=== PATIENT | male | born 1940 | race Caucasian/White ===

== ENCOUNTER → 2017-09-16 | Outpatient (REF) | payer MEDICARE ==
[2017-09-16 19:03] LABS: FREE T4 0.98 NG/DL (0.76-1.46)
== END ==
LOC: M LABDRAWC 16:47
DX: E03.9 Hypothyroidism, unspecified (principal)
CPT/HCPCS: 84443

== ENCOUNTER → 2018-09-29 | Outpatient (REF) | payer MEDICARE ==
[2018-09-29 17:40] LABS: CALCIUM LEVEL 9.2 MG/DL (8.8-10.2); CREATININE FOR GFR 1.88 MG/DL (0.70-1.30); FREE T4 1.25 NG/DL (0.76-1.46); GLOMERULAR FILTRATION RATE 37.1 (>42); POTASSIUM SERUM 4.7 MEQ/L (3.5-5.1); THYROID STIMULATING HORMONE 2.93 uIU/ML (0.358-3.740)
== END ==
LOC: M LABDRAWC 16:30
PROVIDERS: ATTEND Student in an Organized Health Care Education/Training Program
DX: N18.3 Chronic kidney disease, stage 3 (moderate) (principal); Z79.899 Other long term (current) drug therapy

== ENCOUNTER → 2019-09-27 | Outpatient (REF) | payer MEDICARE ==
[2019-09-27 17:05] LABS: CALCIUM LEVEL 8.9 MG/DL (8.8-10.2); CREATININE FOR GFR 2.2 MG/DL (0.70-1.30); GLOMERULAR FILTRATION RATE 30.9 (>42); POTASSIUM SERUM 4.8 MEQ/L (3.5-5.1); PROSTATIC SPECIFIC AG MONITOR 0.24 NG/ML (< 4.00)
== END ==
LOC: M LABDRAWC 16:04
PROVIDERS: ATTEND Urology
DX: C61 Malignant neoplasm of prostate (principal); R39.14 Feeling of incomplete bladder emptying; R35.1 Nocturia

== ENCOUNTER → 2019-11-08 | Outpatient (REF) | payer MEDICARE | LOC: M LABDRAWC 15:53 | PROVIDERS: ATTEND Urology | DX: C61 Malignant neoplasm of prostate (principal) ==

== ENCOUNTER → 2019-11-18 | Outpatient (CLI) | payer MEDICARE ==
--- NOTE | 2019-11-18 14:33 | REPVR ---
PROCEDURE INFORMATION: Exam: US Duplex Lower Extremity Veins, Bilateral Exam date and time: 11/18/2019 2:06 PM Age: 79 years old Clinical indication: Swelling (edema) of limb; Lower extremity, bilateral; Additional info: R/O dvt, micheal leg edema/swelling TECHNIQUE: Imaging protocol: Real-time duplex ultrasound of the extremities with 2-D delvalle scale, color Doppler flow and spectral waveform analysis with image documentation. Complete exam focused on the bilateral lower extremity veins. COMPARISON: No relevant prior studies available. FINDINGS: Right deep veins: Unremarkable. The common femoral, femoral, proximal profunda femoral and popliteal veins are patent without thrombus. Normal Doppler waveforms. Normal compressibility and/or augmentation response. Right superficial veins: Saphenofemoral junction is patent without thrombus. Left deep veins: Unremarkable. The common femoral, femoral, proximal profunda femoral and popliteal veins are patent without thrombus. Normal Doppler waveforms. Normal compressibility and/or augmentation response. Left superficial veins: Saphenofemoral junction is patent without thrombus. Soft tissues: 4.7 x 0.9 x 2.2 cm cyst in the right popliteal fossa. No internal vascularity. 4.1 x 1.3 x 2.4 cm cyst in the left popliteal fossa. No internal vascularity. IMPRESSION: 1. No evidence of lower extremity DVT. 2. Bilateral popliteal cysts. Electronically signed by: Mary Carrasco On 11/18/2019 14:33:43 PM
== END ==
LOC: M RAD 13:41
PROVIDERS: ATTEND Urology
DX: R60.0 Localized edema (principal)

== ENCOUNTER → 2021-08-27 | Outpatient (REF) | payer MEDICARE ==
[2021-08-27 16:37] LABS: ALBUMIN 3.6 GM/DL (3.2-5.2); CALCIUM LEVEL 8.3 MG/DL (8.8-10.2); CREATININE FOR GFR 2.36 MG/DL (0.70-1.30); GLOMERULAR FILTRATION RATE 28.3 (>35); PHOSPHORUS LEVEL 3.2 MG/DL (2.5-4.9); POTASSIUM SERUM 5.5 MEQ/L (3.5-5.1)
== END ==
LOC: M LABDRAWC 15:31
DX: N18.32 Chronic kidney disease, stage 3b (principal)

== ENCOUNTER → 2021-11-08 | Outpatient (REF) | payer MEDICARE ==
[2021-11-08 18:26] LABS: HEMATOCRIT 35.9 % (42.0-52.0); HEMOGLOBIN 11.4 g/dl (13.5-17.5)
[2021-11-08 19:08] LABS: ALBUMIN 3.6 GM/DL (3.2-5.2); CALCIUM LEVEL 8.7 MG/DL (8.8-10.2); CREATININE FOR GFR 2.61 MG/DL (0.70-1.30); GLOMERULAR FILTRATION RATE 25.2 (>35); PHOSPHORUS LEVEL 3.2 MG/DL (2.5-4.9)
[2021-11-08 19:42] LABS: PTH INTACT 69.9 PG/ML (18.5-88.0)
== END ==
LOC: M LABDRAWC 16:35
PROVIDERS: ATTEND Internal Medicine Nephrology
DX: E87.5 Hyperkalemia (principal); Z79.899 Other long term (current) drug therapy

== ENCOUNTER → 2021-11-12 | Outpatient (REF) | payer MEDICARE ==
[2021-11-12 18:29] LABS: CREATININE,RANDOM URINE 45.5 MG/DL; TOTAL PROTEIN,RANDOM URINE 86.6 MG/DL (0.0-12.0)
== END ==
LOC: M LABDRAWC 17:03
PROVIDERS: ATTEND Internal Medicine Nephrology
DX: E87.5 Hyperkalemia (principal)

== ENCOUNTER → 2021-12-17 | Outpatient (REF) | payer MEDICARE ==
[2021-12-17 18:41] LABS: CALCIUM LEVEL 8.7 MG/DL (8.8-10.2); CREATININE FOR GFR 2.43 MG/DL (0.70-1.30); GLOMERULAR FILTRATION RATE 27.4 (>35); POTASSIUM SERUM 4.8 MEQ/L (3.5-5.1)
== END ==
LOC: M LABDRAWC 17:03
PROVIDERS: ATTEND Internal Medicine Nephrology
DX: E87.5 Hyperkalemia (principal)

== ENCOUNTER → 2022-09-10 | Outpatient (REF) | payer MEDICARE ==
[2022-09-10 17:37] LABS: HEMATOCRIT 30.1 % (42.0-52.0); HEMOGLOBIN 10.4 g/dl (13.5-17.5)
[2022-09-10 17:57] LABS: ALBUMIN 3.4 G/DL (3.2-5.2); CALCIUM LEVEL 8.3 MG/DL (8.3-10.6); CREATININE FOR GFR 2.85 MG/DL (0.70-1.30); GLOMERULAR FILTRATION RATE 22.7 (>35); PHOSPHORUS LEVEL 2.9 MG/DL (2.4-5.1); POTASSIUM SERUM 4.1 MMOL/L (3.5-5.1)
[2022-09-10 17:58] LABS: PTH INTACT 117.7 PG/ML (18.5-88.0)
[2022-09-10 18:00] LABS: TOTAL 25(OH) VITAMIN D 27.4 NG/ML (20.0-100.0)
== END ==
LOC: M LABDRAWC 16:46
PROVIDERS: ATTEND Internal Medicine Nephrology
DX: E87.5 Hyperkalemia (principal)

== ENCOUNTER → 2022-10-14 | Outpatient (REF) | payer MEDICARE ==
[2022-10-14 17:57] LABS: HEMOGLOBIN A1c 5.3 % (4.0-6.0)
== END ==
LOC: M LABDRAWC 17:10
PROVIDERS: ATTEND Nurse Practitioner Adult Health
DX: E11.9 Type 2 diabetes mellitus without complications (principal)

== ENCOUNTER → 2022-11-12 | Outpatient (REF) | payer MEDICARE ==
[2022-11-12 18:56] LABS: FREE T4 1.36 NG/DL (0.89-1.76); THYROID STIMULATING HORMONE 1.938 uIU/ML (0.55-4.78)
== END ==
LOC: M LABDRAWC 17:43
PROVIDERS: ATTEND Nurse Practitioner Adult Health
DX: E03.9 Hypothyroidism, unspecified (principal)

== ENCOUNTER → 2023-07-22 | Outpatient (REF) | payer MEDICARE ==
[2023-07-22 18:18] LABS: HEMOGLOBIN A1c 5.5 % (4.0-6.0)
[2023-07-22 18:29] LABS: CREATININE, URINE 48.1 MG/DL
[2023-07-22 18:32] LABS: ALBUMIN 3.5 G/DL (3.2-5.2); BILIRUBIN,TOTAL 0.3 MG/DL (0.3-1.2); CALCIUM LEVEL 8.5 MG/DL (8.3-10.6); CHOLESTEROL RISK RATIO 3.49 (<5); CREATININE FOR GFR 3.4 MG/DL (0.70-1.30); GLOMERULAR FILTRATION RATE 18.5 (>35); HDL CHOLESTEROL 35.8 MG/DL (>40); LDL CHOLESTEROL 64.4 MG/DL (<100); NON-HDL-C 89.2 MG/DL; THYROID STIMULATING HORMONE 4.215 uIU/ML (0.55-4.78); TOTAL PROTEIN 6.1 G/DL (5.7-8.2)
== END ==
LOC: M LABDRAWC 16:45
PROVIDERS: ATTEND Nurse Practitioner Family
DX: E78.2 Mixed hyperlipidemia (principal); E11.9 Type 2 diabetes mellitus without complications; E03.9 Hypothyroidism, unspecified

== ENCOUNTER → 2023-09-21 | Outpatient (REF) | payer MEDICARE ==
[2023-09-21 18:00] LABS: ALBUMIN 3.5 G/DL (3.2-5.2); BILIRUBIN,TOTAL 0.2 MG/DL (0.3-1.2); CALCIUM LEVEL 8.8 MG/DL (8.3-10.6); CHOLESTEROL RISK RATIO 3.31 (<5); CREATININE FOR GFR 3.67 MG/DL (0.70-1.30); GLOMERULAR FILTRATION RATE 16.9 (>35); HDL CHOLESTEROL 30.5 MG/DL (>40); LDL CHOLESTEROL 46.3 MG/DL (<100); NON-HDL-C 70.5 MG/DL; TOTAL PROTEIN 6.1 G/DL (5.7-8.2)
[2023-09-21 18:07] LABS: THYROID STIMULATING HORMONE 1.654 uIU/ML (0.55-4.78)
[2023-09-21 18:09] LABS: CREATININE, URINE 66.3 MG/DL
[2023-09-21 18:17] LABS: HEMOGLOBIN A1c 5.3 % (4.0-6.0)
[2023-09-21 18:30] LABS: MAU/CREAT RATIO 927.6 MCG/MG (0.0-30.0)
== END ==
LOC: M LABDRAWC 17:10
PROVIDERS: ATTEND Nurse Practitioner Family
DX: E11.9 Type 2 diabetes mellitus without complications (principal); E78.2 Mixed hyperlipidemia; E03.9 Hypothyroidism, unspecified

== ENCOUNTER → 2023-10-22 | Outpatient (REF) | payer MEDICARE ==
[2023-10-27 12:31] LABS: HEMOGLOBIN A1c 5.2 % (4.0-6.0)
[2023-10-27 12:32] LABS: CREATININE FOR GFR 3.1 MG/DL (0.70-1.30); GLOMERULAR FILTRATION RATE 20.6 (>35)
[2023-10-27 12:33] LABS: BILIRUBIN,TOTAL 0.3 MG/DL (0.3-1.2); CALCIUM LEVEL 8.5 MG/DL (8.3-10.6); CARBON DIOXIDE LEVEL 21.6 MMOL/L (20-31); POTASSIUM SERUM 4.5 MMOL/L (3.5-5.1)
[2023-10-27 12:34] LABS: ALBUMIN 3.5 G/DL (3.2-5.2); CHOLESTEROL RISK RATIO 3.48 (<5); HDL CHOLESTEROL 32.4 MG/DL (>40); NON-HDL-C 80.6 MG/DL; THYROID STIMULATING HORMONE 2.467 uIU/ML (0.55-4.78); TOTAL PROTEIN 6.3 G/DL (5.7-8.2)
[2023-10-27 12:57] LABS: CREATININE, URINE 98.19 MG/DL
== END ==
LOC: M LABDRAWC 09:47
PROVIDERS: ATTEND Nurse Practitioner Family
DX: E11.9 Type 2 diabetes mellitus without complications (principal); E78.2 Mixed hyperlipidemia; E03.9 Hypothyroidism, unspecified

== ENCOUNTER → 2023-11-24 | Outpatient (REF) | payer MEDICARE ==
[2023-11-24 19:37] LABS: HEMOGLOBIN A1c 5.3 % (4.0-6.0)
[2023-11-24 19:41] LABS: CREATININE, URINE 46.3 MG/DL
[2023-11-24 19:42] LABS: ALBUMIN 3.7 G/DL (3.2-5.2); BILIRUBIN,TOTAL 0.2 MG/DL (0.3-1.2); CALCIUM LEVEL 9.4 MG/DL (8.3-10.6); CHOLESTEROL RISK RATIO 3.32 (<5); CREATININE FOR GFR 3.87 MG/DL (0.70-1.30); GLOMERULAR FILTRATION RATE 15.9 (>35); HDL CHOLESTEROL 37.3 MG/DL (>40); LDL CHOLESTEROL 73.3 MG/DL (<100); NON-HDL-C 86.7 MG/DL; THYROID STIMULATING HORMONE 2.609 uIU/ML (0.55-4.78); TOTAL PROTEIN 6.6 G/DL (5.7-8.2)
[2023-11-24 19:56] LABS: MAU/CREAT RATIO 1069.1 MCG/MG (0.0-30.0)
[2023-11-26 08:13] LABS: LDL DIRECT 70 mg/dL (<100)
== END ==
LOC: M LABDRAWC 17:28
PROVIDERS: ATTEND Nurse Practitioner Family
DX: E78.2 Mixed hyperlipidemia (principal); E11.9 Type 2 diabetes mellitus without complications; E03.9 Hypothyroidism, unspecified

== ENCOUNTER → 2023-12-08 | Outpatient (REF) | payer MEDICARE ==
[2023-12-08 17:11] LABS: HEMOGLOBIN A1c 5.3 % (4.0-6.0)
[2023-12-08 17:31] LABS: CREATININE, URINE 82.3 MG/DL
[2023-12-08 17:35] LABS: ALBUMIN 3.6 G/DL (3.2-5.2); BILIRUBIN,TOTAL 0.2 MG/DL (0.3-1.2); CALCIUM LEVEL 8.5 MG/DL (8.3-10.6); CHOLESTEROL RISK RATIO 3.27 (<5); CREATININE FOR GFR 3.71 MG/DL (0.70-1.30); GLOMERULAR FILTRATION RATE 16.7 (>35); HDL CHOLESTEROL 33.3 MG/DL (>40); LDL CHOLESTEROL 40.5 MG/DL (<100); NON-HDL-C 75.7 MG/DL; POTASSIUM SERUM 4.7 MMOL/L (3.5-5.1); THYROID STIMULATING HORMONE 1.576 uIU/ML (0.55-4.78); TOTAL PROTEIN 6.4 G/DL (5.7-8.2)
[2023-12-08 17:42] LABS: MAU/CREAT RATIO 900.3 MCG/MG (0.0-30.0)
[2023-12-10 06:53] LABS: LDL DIRECT 56 mg/dL (<100)
== END ==
LOC: M LABDRAWC 16:31
PROVIDERS: ATTEND Nurse Practitioner Family
DX: E11.9 Type 2 diabetes mellitus without complications (principal); E78.2 Mixed hyperlipidemia; E03.9 Hypothyroidism, unspecified

== ENCOUNTER → 2024-09-23 | Outpatient (REF) | payer MEDICARE ==
[2024-09-23 17:50] LABS: CALCIUM LEVEL 8.4 MG/DL (8.3-10.6); CARBON DIOXIDE LEVEL 19.0 MMOL/L (20-31); CHLORIDE LEVEL 109.0 MMOL/L (98-107); CREATININE FOR GFR 5.84 MG/DL (0.70-1.30); GLOMERULAR FILTRATION RATE 8.9 (>35); POTASSIUM SERUM 5.1 MMOL/L (3.5-5.1); SODIUM LEVEL 141.0 MMOL/L (136-145)
== END ==
LOC: M LABDRAWC 17:21
PROVIDERS: ATTEND Internal Medicine Nephrology
DX: N18.4 Chronic kidney disease, stage 4 (severe) (principal)

== ENCOUNTER → 2024-10-06 | Outpatient (REF) | payer MEDICARE ==
[2024-10-06 18:33] LABS: CALCIUM LEVEL 7.7 MG/DL (8.3-10.6); CARBON DIOXIDE LEVEL 18.0 MMOL/L (20-31); CHLORIDE LEVEL 110.0 MMOL/L (98-107); CREATININE FOR GFR 5.74 MG/DL (0.70-1.30); GLOMERULAR FILTRATION RATE 9.1 (>35); POTASSIUM SERUM 5.2 MMOL/L (3.5-5.1); SODIUM LEVEL 142.0 MMOL/L (136-145)
== END ==
LOC: M LABDRAWC 17:38
PROVIDERS: ATTEND Internal Medicine Nephrology
DX: N18.4 Chronic kidney disease, stage 4 (severe) (principal)

== ENCOUNTER 2024-10-31 14:35 | Inpatient (IN) | payer MEDICARE ==
[~2024-10-31] VITALS: Ht 172.7 cm; Wt 67.9 kg
[2024-10-31] MEDS ORDERED: AMLO1TAB25 PO (15:14)
[2024-10-31] MEDS ORDERED: ASPI81CH33 PO (15:14)
[2024-10-31] MEDS ORDERED: FERR325T19 PO (15:14)
[2024-10-31] MEDS ORDERED: TORS10TA3 PO (15:14)
[2024-10-31] MEDS ORDERED: LISI40TA10 PO (15:14)
[2024-10-31] MEDS ORDERED: PHEN15TA12 PO (15:14)
[2024-10-31] MEDS ORDERED: LEVO88TA3 PO (15:14)
[2024-10-31] MEDS ORDERED: ATOR1TAB21 PO (15:14)
[2024-10-31] MEDS ORDERED: NARD15TA PO (15:15)
[2024-10-31 15:23] LABS: BASO # 0.1 10^3/uL (0.0-0.2); BASO % 1.3 % (0.0-1.0); EOS # 0.3 10^3/uL (0.0-0.5); EOS % 5.6 % (0.0-3.0); LYMPH # 0.9 10^3/uL (1.5-5.0); LYMPH % 17.1 % (24.0-44.0); MONO # 0.5 10^3/uL (0.0-0.8); MONO % 8.7 % (2.0-8.0); NEUTROPHILS # 3.6 10^3/uL (1.5-8.5); NEUTROPHILS % 67.1 % (36.0-66.0); PLATELET COUNT, AUTOMATED 166 10^3/uL (150-450)
[2024-10-31 16:03] LABS: ALT/SGPT 22.0 U/L (7.0-40); AST/SGOT 24.0 U/L (<34); CALCIUM LEVEL 9.1 MG/DL (8.3-10.6); CARBON DIOXIDE LEVEL 18.0 MMOL/L (20-31); CHLORIDE LEVEL 111.0 MMOL/L (98-107); CREATININE FOR GFR 6.21 MG/DL (0.70-1.30); GLOMERULAR FILTRATION RATE 8.3 (>35); POTASSIUM SERUM 5.3 MMOL/L (3.5-5.1); SODIUM LEVEL 141.0 MMOL/L (136-145)
[2024-10-31 16:39] LABS: VENOUS BASE EXCESS -9.7 (-2.0-2.0); VENOUS HCO3 14.9 MMOL/L (23.0-27.0); VENOUS O2 SATURATION 97.9 % (60.0-80.0); VENOUS PARTIAL PRESSURE CO2 28.1 mmHg (38.0-50.0); VENOUS PARTIAL PRESSURE O2 111.2 mmHg (30.0-50.0); VENOUS PH 7.343 UNITS (7.330-7.430); VENOUS STANDARD HCO3 16.5 MMOL/L; VENOUS TOTAL CO2 15.8 MMOL/L (24.0-28.0)
[2024-10-31 17:19] LABS: ALT/SGPT 21.0 U/L (7.0-40); AST/SGOT 25.0 U/L (<34); CALCIUM LEVEL 9.0 MG/DL (8.3-10.6); CARBON DIOXIDE LEVEL 16.0 MMOL/L (20-31); CHLORIDE LEVEL 113.0 MMOL/L (98-107); CREATININE FOR GFR 6.18 MG/DL (0.70-1.30); GLOMERULAR FILTRATION RATE 8.3 (>35); POTASSIUM SERUM 5.4 MMOL/L (3.5-5.1); SODIUM LEVEL 143.0 MMOL/L (136-145)
[2024-10-31] MEDS ORDERED: SODI650T PO (18:02)
[2024-10-31] MEDS ORDERED: ISOS1TAB35 PO (18:02)
[2024-10-31] MEDS: FUROSEMIDE 100 MG/10 ML VIAL IV ONE ×2 (18:03→20:02)
[2024-10-31] MEDS ORDERED: VITADRO5 PO (18:03)
[2024-10-31] MEDS ORDERED: HOME MED LIST COMPLETE! XX SCH (18:05)
[2024-10-31 18:28] LABS: IRON (FE) 49.0 UG/DL (65-175); PERCENT SATURATION 20.0 % (19.7-50.0)
[2024-10-31 18:31] LABS: VITAMIN B12 LEVEL 621.0 PG/ML (211-911)
[2024-10-31] MEDS: SODIUM BICARBONATE 325 MG TAB PO SCH (20:39)
[2024-10-31] MEDS: ATORVASTATIN 20 MG TAB PO SCH (20:40)
[2024-10-31] MEDS: amLODIPine 10 MG TAB PO SCH (20:40)
[2024-10-31 22:43] VITALS: BP 187/72; TEMP 97.5; O2SAT 95
[2024-10-31 22:58] VITALS: BP 172/72; TEMP 97.4; O2SAT 95
[2024-10-31 23:43] VITALS: BP 176/73; TEMP 97.4; O2SAT 95
[2024-11-01] VITALS (15 sets, daily range): BP systolic 127–169; BP diastolic 61–77; TEMP 96.7–97.9; O2SAT 94–99
[2024-11-01 03:03] LABS: BASO # 0.1 10^3/uL (0.0-0.2); BASO % 1.2 % (0.0-1.0); EOS # 0.4 10^3/uL (0.0-0.5); EOS % 5.5 % (0.0-3.0); LYMPH # 0.9 10^3/uL (1.5-5.0); LYMPH % 14.3 % (24.0-44.0); MONO # 0.6 10^3/uL (0.0-0.8); MONO % 8.7 % (2.0-8.0); NEUTROPHILS # 4.6 10^3/uL (1.5-8.5); NEUTROPHILS % 70.0 % (36.0-66.0); PLATELET COUNT, AUTOMATED 145 10^3/uL (150-450)
[2024-11-01 03:29] LABS: CALCIUM LEVEL 8.9 MG/DL (8.3-10.6); CARBON DIOXIDE LEVEL 18.0 MMOL/L (20-31); CHLORIDE LEVEL 112.0 MMOL/L (98-107); CREATININE FOR GFR 6.42 MG/DL (0.70-1.30); GLOMERULAR FILTRATION RATE 8.0 (>35); POTASSIUM SERUM 5.7 MMOL/L (3.5-5.1); SODIUM LEVEL 144.0 MMOL/L (136-145)
[2024-11-01] MEDS: LEVOTHYROXINE 88 MCG TABLET (0.088 MG) PO SCH (05:52)
[2024-11-01 05:53] LABS: BASO # 0.1 10^3/uL (0.0-0.2); BASO % 1.4 % (0.0-1.0); EOS # 0.4 10^3/uL (0.0-0.5); EOS % 6.7 % (0.0-3.0); LYMPH # 0.9 10^3/uL (1.5-5.0); LYMPH % 13.6 % (24.0-44.0); MONO # 0.6 10^3/uL (0.0-0.8); MONO % 8.7 % (2.0-8.0); NEUTROPHILS # 4.5 10^3/uL (1.5-8.5); NEUTROPHILS % 69.3 % (36.0-66.0); PLATELET COUNT, AUTOMATED 141 10^3/uL (150-450)
[2024-11-01 06:21] LABS: CALCIUM LEVEL 8.7 MG/DL (8.3-10.6); CARBON DIOXIDE LEVEL 17.0 MMOL/L (20-31); CHLORIDE LEVEL 112.0 MMOL/L (98-107); CREATININE FOR GFR 6.38 MG/DL (0.70-1.30); GLOMERULAR FILTRATION RATE 8.0 (>35); POTASSIUM SERUM 5.2 MMOL/L (3.5-5.1); SODIUM LEVEL 143.0 MMOL/L (136-145)
[2024-11-01] MEDS: ASPIRIN 81 MG CHEWABLE TABLET PO SCH (08:00)
[2024-11-01] MEDS: FUROSEMIDE injection 100 MG, VIAL 2 BAG 13MM ADAPTER 1 EACH in NS 100 ML IV SCH (08:00)
[2024-11-01] MEDS: ISOSORBIDE MONONITRATE 30 MG XR TAB PO SCH (08:01)
[2024-11-01] MEDS: SODIUM BICARBONATE 325 MG TAB PO SCH (08:01)
[2024-11-01] MEDS: FERROUS SULFATE 325 MG TAB PO SCH (12:12)
[2024-11-02] VITALS (7 sets, daily range): BP systolic 140–168; BP diastolic 68–74; TEMP 97–98.5; O2SAT 94–96
[2024-11-02 06:01] LABS: BASO # 0.1 10^3/uL (0.0-0.2); BASO % 1.4 % (0.0-1.0); EOS # 0.5 10^3/uL (0.0-0.5); EOS % 7.7 % (0.0-3.0); LYMPH # 0.8 10^3/uL (1.5-5.0); LYMPH % 12.4 % (24.0-44.0); MONO # 0.6 10^3/uL (0.0-0.8); MONO % 9.1 % (2.0-8.0); NEUTROPHILS # 4.5 10^3/uL (1.5-8.5); NEUTROPHILS % 69.1 % (36.0-66.0); PLATELET COUNT, AUTOMATED 143 10^3/uL (150-450)
[2024-11-02 06:18] LABS: CALCIUM LEVEL 8.7 MG/DL (8.3-10.6); CARBON DIOXIDE LEVEL 17.0 MMOL/L (20-31); CHLORIDE LEVEL 111.0 MMOL/L (98-107); CREATININE FOR GFR 6.47 MG/DL (0.70-1.30); GLOMERULAR FILTRATION RATE 7.9 (>35); POTASSIUM SERUM 5.0 MMOL/L (3.5-5.1); SODIUM LEVEL 143.0 MMOL/L (136-145)
[2024-11-02] MEDS: SODIUM BICARBONATE 325 MG TAB PO SCH (09:39)
[2024-11-02] MEDS: PHENELZINE 15 MG PO SCH (20:27)
[2024-11-03] MEDS ORDERED: FUROSEMIDE 100 MG/10 ML VIAL As Ordered ONE (02:46)
[2024-11-03] MEDS ORDERED: [UNRECOGNIZED DRUG - OTHER] XX ONE (02:47)
[2024-11-03 03:58] VITALS: BP 150/67; TEMP 98.5; O2SAT 94
[2024-11-03 05:50] LABS: BASO # 0.1 10^3/uL (0.0-0.2); BASO % 1.1 % (0.0-1.0); EOS # 0.6 10^3/uL (0.0-0.5); EOS % 8.6 % (0.0-3.0); LYMPH # 0.9 10^3/uL (1.5-5.0); LYMPH % 14.3 % (24.0-44.0); MONO # 0.7 10^3/uL (0.0-0.8); MONO % 10.9 % (2.0-8.0); NEUTROPHILS # 4.2 10^3/uL (1.5-8.5); NEUTROPHILS % 64.8 % (36.0-66.0); PLATELET COUNT, AUTOMATED 142 10^3/uL (150-450)
[2024-11-03 06:11] LABS: CALCIUM LEVEL 8.0 MG/DL (8.3-10.6); CARBON DIOXIDE LEVEL 19.0 MMOL/L (20-31); CHLORIDE LEVEL 109.0 MMOL/L (98-107); CREATININE FOR GFR 6.65 MG/DL (0.70-1.30); GLOMERULAR FILTRATION RATE 7.6 (>35); POTASSIUM SERUM 4.7 MMOL/L (3.5-5.1); SODIUM LEVEL 142.0 MMOL/L (136-145)
[2024-11-03 07:53] VITALS: BP 136/65; TEMP 97.6; O2SAT 96
[2024-11-03 08:54] VITALS: BP 136/65
[2024-11-03] MEDS: BUMETANIDE 1 MG TAB PO SCH (08:54)
[2024-11-03 11:58] VITALS: BP 134/63; TEMP 97.3; O2SAT 97
[2024-11-03] MEDS ORDERED: BUME1TAB3 PO (15:38)
[2024-11-03] MEDS ORDERED: SODI650T PO (15:38)
== END 2024-11-03 17:21 | disposition home or self-care (01) | DRG 291 ==
LOC: M ED 14:35 → M ED INP 17:38 → M PCU 21:10
PROVIDERS: ADMIT General Practice; ATTEND General Practice
PROC: 30233N1 Transfusion of Nonautologous Red Blood Cells into Peripheral Vein, Percutaneous Approach (ICD-10-PCS; principal; 2024-10-31)
DX: I13.2 Hypertensive heart and chronic kidney disease with heart failure and with stage 5 chronic kidney disease, or end stage renal disease (principal); I50.33 Acute on chronic diastolic (congestive) heart failure; N17.9 Acute kidney failure, unspecified; E87.20 Acidosis, unspecified; E44.0 Moderate protein-calorie malnutrition; N18.5 Chronic kidney disease, stage 5; E87.5 Hyperkalemia; D63.1 Anemia in chronic kidney disease; I16.0 Hypertensive urgency; E03.9 Hypothyroidism, unspecified; I25.10 Atherosclerotic heart disease of native coronary artery without angina pectoris; E55.9 Vitamin D deficiency, unspecified; F31.9 Bipolar disorder, unspecified; Z95.1 Presence of aortocoronary bypass graft; Z87.891 Personal history of nicotine dependence; Z79.899 Other long term (current) drug therapy; Z79.82 Long term (current) use of aspirin; Z88.5 Allergy status to narcotic agent

== ENCOUNTER → 2024-11-22 | Outpatient (REF) | payer MEDICARE ==
[~2024-11-22] MED LIST: AMLO1TAB25 PO; ASPI81CH33 PO; ATOR1TAB21 PO; BUME1TAB3 PO; FERR325T19 PO; ISOS1TAB35 PO; LEVO88TA3 PO; LISI40TA10 PO; NARD15TA PO; PHEN15TA12 PO; SODI650T PO; TORS10TA3 PO; VITADRO5 PO
[2024-11-22 19:33] LABS: CALCIUM LEVEL 8.0 MG/DL (8.3-10.6); CARBON DIOXIDE LEVEL 15.0 MMOL/L (20-31); CHLORIDE LEVEL 107.0 MMOL/L (98-107); CREATININE FOR GFR 6.7 MG/DL (0.70-1.30); GLOMERULAR FILTRATION RATE 7.6 (>35); POTASSIUM SERUM 5.0 MMOL/L (3.5-5.1); SODIUM LEVEL 138.0 MMOL/L (136-145)
== END ==
LOC: M LABDRAWC 17:42
PROVIDERS: ATTEND Internal Medicine Nephrology
DX: N18.4 Chronic kidney disease, stage 4 (severe) (principal)

== ENCOUNTER → 2024-11-30 | Outpatient (REF) | payer MEDICARE ==
[2024-11-30 13:34] LABS: CALCIUM LEVEL 7.4 MG/DL (8.3-10.6); CARBON DIOXIDE LEVEL 16.0 MMOL/L (20-31); CHLORIDE LEVEL 112.0 MMOL/L (98-107); CREATININE FOR GFR 5.91 MG/DL (0.70-1.30); GLOMERULAR FILTRATION RATE 8.8 (>35); POTASSIUM SERUM 5.1 MMOL/L (3.5-5.1); SODIUM LEVEL 138.0 MMOL/L (136-145)
== END ==
LOC: M LABDRAWC 12:01
PROVIDERS: ATTEND Internal Medicine Nephrology
DX: N18.4 Chronic kidney disease, stage 4 (severe) (principal)

== ENCOUNTER → 2024-12-07 | Outpatient (REF) | payer MEDICARE ==
[2024-12-07 18:36] LABS: CALCIUM LEVEL 7.4 MG/DL (8.3-10.6); CARBON DIOXIDE LEVEL 15.0 MMOL/L (20-31); CHLORIDE LEVEL 116.0 MMOL/L (98-107); CREATININE FOR GFR 5.71 MG/DL (0.70-1.30); GLOMERULAR FILTRATION RATE 9.2 (>35); POTASSIUM SERUM 5.2 MMOL/L (3.5-5.1); SODIUM LEVEL 140.0 MMOL/L (136-145)
== END ==
LOC: M LABDRAWC 17:35
PROVIDERS: ATTEND Internal Medicine Nephrology
DX: N18.4 Chronic kidney disease, stage 4 (severe) (principal)

== ENCOUNTER → 2024-12-14 | Outpatient (REF) | payer MEDICARE ==
[2024-12-14 19:08] LABS: CALCIUM LEVEL 7.5 MG/DL (8.3-10.6); CARBON DIOXIDE LEVEL 15.0 MMOL/L (20-31); CHLORIDE LEVEL 112.0 MMOL/L (98-107); CREATININE FOR GFR 5.75 MG/DL (0.70-1.30); GLOMERULAR FILTRATION RATE 9.1 (>35); POTASSIUM SERUM 5.7 MMOL/L (3.5-5.1); SODIUM LEVEL 140.0 MMOL/L (136-145)
== END ==
LOC: M LAB REF 17:59 → M LABDRAWC 17:59
PROVIDERS: ATTEND Internal Medicine Nephrology
DX: N18.4 Chronic kidney disease, stage 4 (severe) (principal)